=== PATIENT | female | born 1955 | race Caucasian/White ===

== ENCOUNTER 2022-06-11 13:29 | Emergency (ER) | payer MEDICARE, SELFPAY ==
[2022-06-11 13:40] VITALS: BP 140/79; PULSE 114; RESP 16; TEMP 36.6; O2SAT 98
--- NOTE | 2022-06-11 13:55 | ED.URI ---
HPI - URI/Sore Throat General Chief Complaint: Upper Respiratory Infection Stated Complaint: sob/cough/fever Time Seen by Provider: 06/11/22 13:56 Source: patient and RN notes reviewed Mode of arrival: ambulatory Limitations: no limitations History of Present Illness HPI Narrative: 66-year-old female presented for complaint of headache, body aches, sinus pressure/congestion, cough, fever/chills. States her tested positive for COVID last week, and she returned from [place] recently. Symptoms started 3 days ago. Has been taking Tylenol for symptoms. She denies shortness of breath, dizziness, vomiting or diarrhea. She is not boosted for COVID. MD elicited complaint: cough Related Data Home Medications Medication Instructions Recorded Confirmed atorvastatin 40 mg tablet tablet 06/11/22 duloxetine 60 mg capsule,delayed cap PO 06/11/22 release erenumab-aooe 140 mg/mL ea subcut 06/11/22 subcutaneous auto-injector (Aimovig Autoinjector) omeprazole 40 mg capsule,delayed cap 06/11/22 release trazodone 150 mg tablet tablet 06/11/22 Allergies Allergy/AdvReac Type Severity Reaction Status Date / Time bupropion Allergy Unknown Other Verified 06/11/22 14:01 codeine Allergy Unknown Other Verified 06/11/22 14:01 hydrocodone Allergy Unknown Other Verified 06/11/22 14:01 hydromorphone Allergy Unknown Other Verified 06/11/22 14:01 ketorolac Allergy Unknown Other Verified 06/11/22 14:01 meperidine Allergy Unknown Other Verified 06/11/22 14:01 morphine Allergy Unknown Other Verified 06/11/22 14:01 NSAIDS (Non-Steroidal Allergy Unknown Other Verified 06/11/22 14:01 Anti-Inflamma oxycodone Allergy Unknown Other Verified 06/11/22 14:01 propoxyphene Allergy Unknown Other Verified 06/11/22 14:01 tramadol Allergy Unknown Other Verified 06/11/22 14:01 CERTUSS Allergy Unknown Other Uncoded 06/11/22 14:01 MUSCLE RELAXERS Allergy Unknown Other Uncoded 06/11/22 14:01 Review of Systems Review of Systems: CONSTITUTIONAL: Endorses malaise, chills, sweats, fever EYES: Denies visual changes, redness, or discharge ENT: Reports rhinorrhea, congestion, sinus pain, otalgia, sore throat CARDIOVASCULAR: Denies chest pain, palpitations, edema RESPIRATORY: Reports cough, post nasal drainage. Denies dyspnea GASTROINTESTINAL: Denies abdominal pain, nausea, vomiting, diarrhea SKIN: Denies rash or itching MUSCULOSKELETAL: Endorses myalgia NEUROLOGIC: Endorses headache Exam Narrative: GENERAL: Ill-appearing, nontoxic EYES: conjunctivae clear ENT: Mucous membranes moist. TMs pearly mojica with dull light reflex bilaterally; no tragal tenderness. Oropharynx erythematous without lesions or exudate, no drooling, no hoarseness, no trismus, uvula midline. No tripod positioning, muffled voice, soft palate or pharyngeal wall bulging NECK: Supple. No lymphadenopathy CHEST: Clear to auscultation, breath sounds equal. HEART: Regular rate and rhythm. No murmur heard. SKIN: Warm, dry, no rash. NEURO: Alert and oriented x3. PSYCH: Normal mood and affect Course Course Emergency Course: Patient is aware of diagnosis, understands and agrees to treatment plan. Anticipatory guidance given. Patient agrees to follow-up as directed and is aware of reasons to seek care at the emergency department. Portions of this record may have been created with voice recognition software Level of Care: Express Care Visit Vital Signs Vital signs: Vital Signs Temperature 98 F 06/11/22 13:40 Pulse Rate 114 H 06/11/22 13:40 Respiratory Rate 16 06/11/22 13:40 Blood Pressure 140/79 06/11/22 13:40 Pulse Oximetry 98 06/11/22 13:40 Temperature 98 F 06/11/22 13:40 Pulse Rate 114 H 06/11/22 13:40 Respiratory Rate 16 06/11/22 13:40 Blood Pressure 140/79 06/11/22 13:40 Pulse Oximetry 98 06/11/22 13:40 reviewed MDM - URI/Sore Throat MDM Narrative Medical decision making narrative: covid negative. PCR sent given known exposu
[2022-06-11 21:36] LABS: SARS-CoV-2 RNA PCR Negative
== END 2022-06-11 14:50 | disposition home or self-care (01) ==
PROVIDERS: Emergency Provider Nurse Practitioner Family; PCP Family Medicine
DX: B34.9 Viral infection, unspecified (principal); Z20.822 Contact with and (suspected) exposure to COVID-19
CPT/HCPCS: 87426; 99213; C9803; G0463; U0003; U0005